=== PATIENT | male | born 1995 | race Two or more races ===

== ENCOUNTER 2024-01-17 21:58 | Emergency (ER) | payer BC ==
[~2024-01-17] VITALS: Ht 175.3 cm; Wt 77.1 kg
[2024-01-17] MEDS ORDERED: LOPERAMIDE HCL 2 MG CAPSULE ONE (22:34)
[2024-01-17] MEDS: LOPERAMIDE HCL 2 MG CAPSULE PO ONE ×2 (22:34)
[2024-01-17 22:44] VITALS: BP 128/71; TEMP 98; O2SAT 98
== END 2024-01-17 22:45 | disposition home or self-care (01) ==
LOC: ER 22:01
DX: K52.89 Other specified noninfective gastroenteritis and colitis (principal); R19.7 Diarrhea, unspecified; R10.9 Unspecified abdominal pain
CPT/HCPCS: A4606; A4663